=== PATIENT | male | born 1960 | race Two or more races ===

== ENCOUNTER 2024-09-24 12:30 | Inpatient (IN) | payer OTHER ==
[~2024-09-24] VITALS: Ht 182.9 cm; Wt 87.1 kg
[2024-09-24 14:44] LABS: BASOPHILS % (AUTO) 0.6 % (0.0-2.0); EOSINOPHILS # (AUTO) 0.1 K/uL (0.0-0.7); EOSINOPHILS % (AUTO) 1.6 % (0.0-7.0); HEMATOCRIT 41.8 % (36.7-47.1); HEMOGLOBIN 14.3 g/dL (12.5-16.3); LYMPHOCYTES # (AUTO) 1.8 K/uL (0.8-4.8); LYMPHOCYTES % (AUTO) 26.6 % (20.5-51.5); MEAN CORPUSCULAR HEMOGLOBIN 30.1 uug (23.8-33.4); MEAN CORPUSCULAR HGB CONC 34 g/dL (32.5-36.3); MEAN CORPUSCULAR VOLUME 88.1 fL (73.0-96.2); MONOCYTES # (AUTO) 0.8 K/uL (0.1-1.30); MONOCYTES % (AUTO) 11.9 % (0.0-11.0); NEUTROPHILS # (AUTO) 3.9 K/uL (1.8-8.9); NEUTROPHILS % (AUTO) 59.3 % (38.5-71.5); PLATELET COUNT (AUTO) 213 K/uL (152-348); RED BLOOD CELL COUNT(AUTO) 4.74 MIL/uL (4.06-5.63); RED CELL DISTRIBUTION WIDTH 14.7 % (12.1-16.2); WHITE BLOOD COUNT (AUTO) 6.6 K/uL (3.6-10.2)
[2024-09-24 15:20] LABS: DIFFERENTIAL COMMENT 1
[2024-09-24 15:26] LABS: CALCIUM 11.1 mg/dL (8.5-10.1); CREATININE 2.2 mg/dL (0.6-1.3); POTASSIUM 4.3 mmol/L (3.5-5.1)
[2024-09-24 15:30] LABS: *BILIRUBIN,URIN NEGATIVE (NEGATIVE); *BLOOD, URINE NEGATIVE (NEGATIVE); *CLARITY,URINE CLEAR (CLEAR); *COLOR,URINE YELLOW (YELLOW); *KETONES,URINE NEGATIVE (NEGATIVE); *PROTEIN,URINE NEGATIVE (NEGATIVE); *UROBILINOGEN,URINE 0.2 E.U./dl (NORMAL); LEUKOCYTE ESTERASE ,URINE 1+ (NEGATIVE); NITRITE, URINE NEGATIVE (NEGATIVE); PH,URINE 5.5 (5.0-8.0); UGLUCOSE NEGATIVE (NEGATIVE)
[2024-09-24] MEDS ORDERED: MAGNESIUM HYDROXIDE 30 ML LIQUID UDC ONE (15:56)
[2024-09-24] MEDS: MAGNESIUM HYDROXIDE 30 ML LIQUID UDC PO ONE (15:59)
[2024-09-24 16:06] LABS: BACTERIA,URINE FEW /HPF (NONE SEEN); RBC,URINE 0-3 /HPF (0-3)
[2024-09-24 16:07] LABS: SQUAMOUS EPITHELIAL CELL,UR FEW /HPF (NONE SEEN)
[2024-09-24 18:50] VITALS: BP 153/93; TEMP 98; O2SAT 96
[2024-09-24] MEDS ORDERED: METO25TA6 PO (18:52)
[2024-09-24] MEDS ORDERED: AMAN100T PO (18:52)
[2024-09-24] MEDS ORDERED: LEVE500T9 PO (18:52)
[2024-09-24] MEDS ORDERED: TAMS-3 PO (18:52)
[2024-09-24] MEDS ORDERED: PANT40TA49 PO (18:52)
[2024-09-24] MEDS ORDERED: DIVA-78 PO (18:52)
[2024-09-24] MEDS ORDERED: LEVO50TA8 PO (18:53)
[2024-09-24] MEDS ORDERED: OMEG100037 PO (18:54)
[2024-09-24] MEDS ORDERED: CHOL200010 PO (18:56)
[2024-09-24 20:00] VITALS: BP 131/86; TEMP 97.4; O2SAT 96
[2024-09-24] MEDS ORDERED: MAG HYDROX/AL HYDROX/SIMETH 30 ML LIQUID UDC PO PRN (20:00)
[2024-09-24] MEDS ORDERED: QUETIAPINE FUMARATE 25 MG TABLET PO PRN (20:00)
[2024-09-24] MEDS ORDERED: ZOLPIDEM 5 MG TABLET PO PRN (20:00)
[2024-09-24] MEDS ORDERED: LORAZEPAM 1 MG TABLET PO PRN (20:00)
[2024-09-24] MEDS ORDERED: ACETAMINOPHEN 325 MG TABLET PO PRN (20:00)
[2024-09-24] MEDS: BLOOD SUGAR DIAGNOSTIC 1 EACH STRIP VI ONE (20:47)
[2024-09-24] MEDS: levETIRAcetam 500 MG/5 ML LIQUID UDC NG SCH (21:53)
[2024-09-24] MEDS: ZOLPIDEM 5 MG TABLET PO PRN (22:22)
[2024-09-24] MEDS: METOPROLOL TARTRATE 25 MG TABLET PO SCH (23:30)
[2024-09-24] MEDS ORDERED: levETIRAcetam 500 MG TABLET PO SCH (23:30)
[2024-09-25 07:56] LABS: BASOPHILS # (AUTO) 0.1 K/UL (0.0-0.2); BASOPHILS % (AUTO) 0.8 % (0.0-2.0); EOSINOPHILS # (AUTO) 0.1 K/uL (0.0-0.7); EOSINOPHILS % (AUTO) 1.3 % (0.0-7.0); HEMATOCRIT 45.7 % (36.7-47.1); HEMOGLOBIN 15.5 g/dL (12.5-16.3); MEAN CORPUSCULAR HGB CONC 34 g/dL (32.5-36.3); MEAN CORPUSCULAR VOLUME 88.5 fL (73.0-96.2); MONOCYTES # (AUTO) 1.3 K/uL (0.1-1.30); MONOCYTES % (AUTO) 16.2 % (0.0-11.0); NEUTROPHILS # (AUTO) 4.4 K/uL (1.8-8.9); NEUTROPHILS % (AUTO) 56.7 % (38.5-71.5); PLATELET COUNT (AUTO) 234 K/uL (152-348); RED BLOOD CELL COUNT(AUTO) 5.16 MIL/uL (4.06-5.63); RED CELL DISTRIBUTION WIDTH 15.2 % (12.1-16.2); WHITE BLOOD COUNT (AUTO) 7.8 K/uL (3.6-10.2)
[2024-09-25] MEDS: levETIRAcetam 500 MG/5 ML LIQUID UDC PO SCH (08:09)
[2024-09-25] MEDS: LEVOTHYROXINE SODIUM 50 MCG TABLET PO SCH (08:10)
[2024-09-25] MEDS: CHOLECALCIFEROL 1,000 UNIT TABLET PO SCH (08:10)
[2024-09-25] MEDS: PANTOPRAZOLE SODIUM 40 MG TABLET.DR PO SCH (08:10)
[2024-09-25 08:18] VITALS: BP 138/86; TEMP 98; O2SAT 100
[2024-09-25 08:20] LABS: ALBUMIN 3.1 g/dL (3.4-5.0); BILIRUBIN,TOTAL 0.7 mg/dL (0.2-1.0); CALCIUM 10.9 mg/dL (8.5-10.1); CREATININE 2.1 mg/dL (0.6-1.3); MAGNESIUM 2.1 mg/dL (1.8-2.4); POTASSIUM 4.5 mmol/L (3.5-5.1); TOTAL PROTEIN, SERUM 7.2 g/dL (6.4-8.2)
[2024-09-25 08:23] LABS: DIFFERENTIAL COMMENT 1
[2024-09-25] MEDS ORDERED: DIVALPROEX 500 MG TABLET.DR PO SCH (09:00)
[2024-09-25] MEDS ORDERED: FISH OIL PO SCH (09:00)
[2024-09-25] MEDS ORDERED: EPA PO SCH (09:00)
[2024-09-25] MEDS ORDERED: OMEGA-3 FATTY ACIDS/FISH OIL CAPSULE PO SCH (09:00)
[2024-09-25] MEDS ORDERED: AMANTADINE HCL 100 MG CAPSULE PO SCH (09:00)
[2024-09-25] MEDS ORDERED: DHA PO SCH (09:00)
[2024-09-25] MEDS ORDERED: Medication Not On Formulary EA (Omega-3/Dha/Epa/Fish Oil (Fish Oil 1,000 mg Softgel) 1,0 PO SCH (09:00)
[2024-09-25] MEDS ORDERED: OMEGA PO SCH (09:00)
[2024-09-25] MEDS: OMEGA-3 FATTY ACIDS/FISH OIL CAPSULE PO SCH (09:19)
[2024-09-25 10:17] LABS: THYROID STIMULATING HORMONE 5.552 mIU/mL (0.358-3.740)
[2024-09-25 10:47] LABS: EOSINOPHILS % (MANUAL) 2 % (0-8); LYMPHOCYTES % (MANUAL) 25 % (20-40); MONOCYTES % (MANUAL) 16 % (2-10); NEUTROPHILS % (MANUAL) 57 % (42-75)
[2024-09-25 10:48] LABS: PLATELET ESTIMATE ADEQUATE
[2024-09-25] MEDS ORDERED: ZIPRASIDONE 20 MG CAPSULE PO SCH (15:15)
[2024-09-25 16:08] VITALS: BP 109/64; TEMP 98.1; O2SAT 100
[2024-09-25] MEDS: ZIPRASIDONE 20 MG CAPSULE PO SCH (17:04)
[2024-09-25] MEDS: VENLAFAXINE XR 37.5 MG CAP.SR.24H PO SCH (17:04)
[2024-09-25] MEDS: LITHIUM CARBONATE 150 MG CAPSULE PO SCH (17:04)
[2024-09-25] MEDS ORDERED: CEphaleXIN 500 MG CAPSULE PO SCH (18:30)
[2024-09-25] MEDS: CEphaleXIN 500 MG CAPSULE PO SCH (18:52)
[2024-09-25 20:00] VITALS: BP 135/89; TEMP 97.9; O2SAT 97
[2024-09-25] MEDS: AMANTADINE HCL 100 MG CAPSULE PO SCH (20:27)
[2024-09-25] MEDS: levETIRAcetam 500 MG TABLET PO SCH (20:27)
[2024-09-25] MEDS: TAMSULOSIN HCL 0.4 MG CAP.SR.24H PO SCH (20:28)
[2024-09-26] MEDS: MAGNESIUM HYDROXIDE 30 ML LIQUID UDC PO PRN (02:29)
[2024-09-26 08:14] VITALS: BP 133/78; TEMP 98.1; O2SAT 100
[2024-09-26 08:20] LABS: BASOPHILS % (AUTO) 0.6 % (0.0-2.0); DIFFERENTIAL COMMENT 1; EOSINOPHILS # (AUTO) 0.1 K/uL (0.0-0.7); EOSINOPHILS % (AUTO) 1.6 % (0.0-7.0); HEMATOCRIT 43.1 % (36.7-47.1); HEMOGLOBIN 14.6 g/dL (12.5-16.3); LYMPHOCYTES # (AUTO) 2.3 K/uL (0.8-4.8); LYMPHOCYTES % (AUTO) 30.7 % (20.5-51.5); MEAN CORPUSCULAR HEMOGLOBIN 29.9 uug (23.8-33.4); MEAN CORPUSCULAR HGB CONC 34 g/dL (32.5-36.3); MEAN CORPUSCULAR VOLUME 88.2 fL (73.0-96.2); MONOCYTES # (AUTO) 1.1 K/uL (0.1-1.30); MONOCYTES % (AUTO) 15.5 % (0.0-11.0); NEUTROPHILS # (AUTO) 3.8 K/uL (1.8-8.9); NEUTROPHILS % (AUTO) 51.6 % (38.5-71.5); PLATELET COUNT (AUTO) 211 K/uL (152-348); RED BLOOD CELL COUNT(AUTO) 4.88 MIL/uL (4.06-5.63); WHITE BLOOD COUNT (AUTO) 7.3 K/uL (3.6-10.2)
[2024-09-26 08:40] LABS: ALBUMIN 2.9 g/dL (3.4-5.0); BILIRUBIN,TOTAL 0.8 mg/dL (0.2-1.0); CALCIUM 11.3 mg/dL (8.5-10.1); CREATININE 2.2 mg/dL (0.6-1.3); MAGNESIUM 2.5 mg/dL (1.8-2.4); PHOSPHOROUS 4.3 mg/dL (2.5-4.9); POTASSIUM 4.2 mmol/L (3.5-5.1); TOTAL PROTEIN, SERUM 6.4 g/dL (6.4-8.2)
[2024-09-26 08:51] LABS: LYMPHOCYTES % (MANUAL) 0 % (20-40); NEUTROPHILS % (MANUAL) 0 % (42-75)
[2024-09-26 16:16] VITALS: BP 122/81; TEMP 98.3; O2SAT 100
[2024-09-26 20:00] VITALS: BP 125/80; TEMP 98.3; O2SAT 96
[2024-09-26] MEDS: MIRTAZAPINE 15 MG TABLET PO SCH (21:10)
[2024-09-27 10:17] VITALS: BP 130/94; TEMP 97.6; O2SAT 95
[2024-09-27 16:10] VITALS: BP 118/83; TEMP 97.5; O2SAT 96
[2024-09-27 19:51] VITALS: BP 125/70; TEMP 97.6; O2SAT 95
[2024-09-27] MEDS: ZIPRASIDONE 20 MG CAPSULE PO SCH (21:32)
[2024-09-27] MEDS: AMOXICILLIN-CLAVUL 875-125MG TABLET PO SCH (21:32)
[2024-09-28 08:12] VITALS: BP 133/84; TEMP 97.9; O2SAT 94
[2024-09-28] MEDS: VENLAFAXINE XR 75 MG TAB.ER.24H PO SCH (08:42)
[2024-09-28 16:14] VITALS: BP 137/90; TEMP 98.2; O2SAT 98
[2024-09-28 20:00] VITALS: BP 133/83; TEMP 98.2; O2SAT 97
[2024-09-29 01:06] LABS: PTH, INTACT 7 pg/mL (15-65)
[2024-09-29 05:06] LABS: A/G RATIO 1.1 (0.7-1.7); ALPHA-1-GLOBULIN 0.2 g/dL (0.0-0.4); ALPHA-2-GLOBULIN 0.5 g/dL (0.4-1.0); BETA GLOBULIN 0.7 g/dL (0.7-1.3); GAMMA GLOBULIN 1.4 g/dL (0.4-1.8); GLOBULIN, TOTAL 2.8 g/dL (2.2-3.9); M-SPIKE 0.4 g/dL (Not Observed); PROTEIN, TOTAL 5.8 g/dL (6.0-8.5)
[2024-09-29 07:58] VITALS: BP 120/75; TEMP 98.2; O2SAT 96
[2024-09-29 15:54] VITALS: BP 120/84; TEMP 98.6; O2SAT 100
[2024-09-29 20:00] VITALS: BP 94/69; TEMP 95.1; O2SAT 98
[2024-09-29 20:36] VITALS: BP 101/75
[2024-09-29] MEDS: MIRTAZAPINE 15 MG TABLET PO SCH (20:41)
[2024-09-30 07:59] VITALS: BP 115/82; TEMP 98.2; O2SAT 96
[2024-09-30 08:53] LABS: CREATININE 3.2 mg/dL (0.6-1.3); POTASSIUM 4.8 mmol/L (3.5-5.1)
[2024-09-30 09:38] LABS: CALCIUM 13.5 mg/dL (8.5-10.1)
[2024-09-30] MEDS: LAMOTRIGINE 25 MG TABLET PO SCH (12:51)
[2024-09-30] MEDS: IV NS 1000 ML 1,000 ML IV SCH (12:54)
[2024-09-30 15:56] VITALS: BP 133/85; TEMP 98.2; O2SAT 99
[2024-09-30 20:00] VITALS: BP 121/85; TEMP 97.8; O2SAT 98
[2024-09-30] MEDS: AMOXICILLIN-CLAVUL 500-125MG TABLET PO SCH (20:26)
[2024-10-01 08:00] VITALS: BP 135/93; TEMP 98; O2SAT 99
[2024-10-01 08:16] LABS: BASOPHILS % (AUTO) 0.5 % (0.0-2.0); EOSINOPHILS # (AUTO) 0.2 K/uL (0.0-0.7); EOSINOPHILS % (AUTO) 2.6 % (0.0-7.0); HEMATOCRIT 43.7 % (36.7-47.1); HEMOGLOBIN 14.6 g/dL (12.5-16.3); LYMPHOCYTES # (AUTO) 2.6 K/uL (0.8-4.8); LYMPHOCYTES % (AUTO) 29.4 % (20.5-51.5); MEAN CORPUSCULAR HEMOGLOBIN 29.8 uug (23.8-33.4); MEAN CORPUSCULAR HGB CONC 34 g/dL (32.5-36.3); MEAN CORPUSCULAR VOLUME 88.9 fL (73.0-96.2); MONOCYTES # (AUTO) 1.2 K/uL (0.1-1.30); MONOCYTES % (AUTO) 14.2 % (0.0-11.0); NEUTROPHILS # (AUTO) 4.6 K/uL (1.8-8.9); NEUTROPHILS % (AUTO) 53.3 % (38.5-71.5); PLATELET COUNT (AUTO) 176 K/uL (152-348); RED BLOOD CELL COUNT(AUTO) 4.92 MIL/uL (4.06-5.63); RED CELL DISTRIBUTION WIDTH 14.6 % (12.1-16.2); WHITE BLOOD COUNT (AUTO) 8.7 K/uL (3.6-10.2)
[2024-10-01 08:24] LABS: DIFFERENTIAL COMMENT 1
[2024-10-01 08:42] LABS: CREATININE 3.1 mg/dL (0.6-1.3); MAGNESIUM 2.4 mg/dL (1.8-2.4); PHOSPHOROUS 4.7 mg/dL (2.5-4.9); POTASSIUM 4.6 mmol/L (3.5-5.1)
[2024-10-01] MEDS: AMANTADINE HCL 100 MG CAPSULE PO SCH (08:43)
[2024-10-01 08:46] LABS: CALCIUM 13.2 mg/dL (8.5-10.1)
[2024-10-01 15:38] VITALS: BP 142/101; TEMP 98; O2SAT 98
[2024-10-01 20:00] VITALS: BP 187/118; TEMP 98; O2SAT 98
[2024-10-01 21:21] VITALS: BP 156/100
[2024-10-02 07:29] LABS: BASOPHILS # (AUTO) 0.1 K/UL (0.0-0.2); BASOPHILS % (AUTO) 0.7 % (0.0-2.0); EOSINOPHILS # (AUTO) 0.2 K/uL (0.0-0.7); EOSINOPHILS % (AUTO) 2.4 % (0.0-7.0); HEMATOCRIT 44.3 % (36.7-47.1); HEMOGLOBIN 14.9 g/dL (12.5-16.3); LYMPHOCYTES # (AUTO) 2.4 K/uL (0.8-4.8); LYMPHOCYTES % (AUTO) 30.6 % (20.5-51.5); MEAN CORPUSCULAR HEMOGLOBIN 29.7 uug (23.8-33.4); MEAN CORPUSCULAR HGB CONC 34 g/dL (32.5-36.3); MEAN CORPUSCULAR VOLUME 88.4 fL (73.0-96.2); MONOCYTES % (AUTO) 12.4 % (0.0-11.0); NEUTROPHILS # (AUTO) 4.2 K/uL (1.8-8.9); NEUTROPHILS % (AUTO) 53.9 % (38.5-71.5); PLATELET COUNT (AUTO) 178 K/uL (152-348); RED BLOOD CELL COUNT(AUTO) 5.01 MIL/uL (4.06-5.63); RED CELL DISTRIBUTION WIDTH 15.1 % (12.1-16.2); WHITE BLOOD COUNT (AUTO) 7.9 K/uL (3.6-10.2)
[2024-10-02 07:41] LABS: MAGNESIUM 2.1 mg/dL (1.8-2.4); PHOSPHOROUS 4.1 mg/dL (2.5-4.9); POTASSIUM 4.3 mmol/L (3.5-5.1)
[2024-10-02 07:44] LABS: DIFFERENTIAL COMMENT 1
[2024-10-02 08:16] VITALS: BP 150/82; TEMP 98.1; O2SAT 96
[2024-10-02] MEDS ORDERED: IV NORMAL SALINE 1000 ML BAG IV ONE ×2 (11:00→11:15)
[2024-10-02] MEDS: IV NS 1000 ML 1,000 ML IV ONE (12:30)
[2024-10-02 16:12] VITALS: BP 156/99; TEMP 98; O2SAT 100
[2024-10-02 20:00] VITALS: BP 156/101; TEMP 97.9; O2SAT 99
[2024-10-02] MEDS: ZIPRASIDONE 20 MG CAPSULE PO SCH (20:55)
[2024-10-02 21:03] VITALS: BP 152/96
[2024-10-03 08:16] VITALS: BP 110/87; TEMP 97.9; O2SAT 100
[2024-10-03 08:17] LABS: BASOPHILS # (AUTO) 0.1 K/UL (0.0-0.2); BASOPHILS % (AUTO) 0.5 % (0.0-2.0); EOSINOPHILS # (AUTO) 0.2 K/uL (0.0-0.7); EOSINOPHILS % (AUTO) 1.9 % (0.0-7.0); HEMATOCRIT 44.2 % (36.7-47.1); HEMOGLOBIN 14.8 g/dL (12.5-16.3); LYMPHOCYTES # (AUTO) 2.7 K/uL (0.8-4.8); LYMPHOCYTES % (AUTO) 28.7 % (20.5-51.5); MEAN CORPUSCULAR HEMOGLOBIN 30.1 uug (23.8-33.4); MEAN CORPUSCULAR HGB CONC 34 g/dL (32.5-36.3); MEAN CORPUSCULAR VOLUME 89.6 fL (73.0-96.2); MONOCYTES % (AUTO) 11.2 % (0.0-11.0); NEUTROPHILS # (AUTO) 5.4 K/uL (1.8-8.9); NEUTROPHILS % (AUTO) 57.7 % (38.5-71.5); PLATELET COUNT (AUTO) 187 K/uL (152-348); RED BLOOD CELL COUNT(AUTO) 4.93 MIL/uL (4.06-5.63); RED CELL DISTRIBUTION WIDTH 14.9 % (12.1-16.2); WHITE BLOOD COUNT (AUTO) 9.3 K/uL (3.6-10.2)
[2024-10-03 08:21] LABS: DIFFERENTIAL COMMENT 1
[2024-10-03 08:29] LABS: CALCIUM 12.9 mg/dL (8.5-10.1); CREATININE 2.8 mg/dL (0.6-1.3); MAGNESIUM 2.3 mg/dL (1.8-2.4); PHOSPHOROUS 3.8 mg/dL (2.5-4.9); POTASSIUM 5.2 mmol/L (3.5-5.1)
[2024-10-03] MEDS: LAMOTRIGINE 25 MG TABLET PO SCH (09:28)
[2024-10-03] MEDS: SODIUM ZIRCONIUM CYCLOSILICATE 10 GM POWD.PACK PO ONE (13:34)
[2024-10-03] MEDS: IV NS 1000 ML 1,000 ML IV SCH (14:59)
[2024-10-03 15:08] LABS: CALCIUM 12.8 mg/dL (8.5-10.1); CREATININE 2.6 mg/dL (0.6-1.3)
[2024-10-03 16:14] VITALS: BP 140/95; TEMP 97.4; O2SAT 100
[2024-10-03 20:08] VITALS: BP 158/98; TEMP 97.9; O2SAT 99
[2024-10-04 07:49] LABS: BASOPHILS # (AUTO) 0.1 K/UL (0.0-0.2); BASOPHILS % (AUTO) 0.7 % (0.0-2.0); EOSINOPHILS # (AUTO) 0.2 K/uL (0.0-0.7); EOSINOPHILS % (AUTO) 2.9 % (0.0-7.0); HEMATOCRIT 42.1 % (36.7-47.1); HEMOGLOBIN 14.2 g/dL (12.5-16.3); LYMPHOCYTES # (AUTO) 3.1 K/uL (0.8-4.8); MEAN CORPUSCULAR HEMOGLOBIN 30.1 uug (23.8-33.4); MEAN CORPUSCULAR HGB CONC 34 g/dL (32.5-36.3); MONOCYTES # (AUTO) 0.9 K/uL (0.1-1.30); MONOCYTES % (AUTO) 11.1 % (0.0-11.0); NEUTROPHILS # (AUTO) 3.9 K/uL (1.8-8.9); NEUTROPHILS % (AUTO) 47.3 % (38.5-71.5); PLATELET COUNT (AUTO) 171 K/uL (152-348); RED BLOOD CELL COUNT(AUTO) 4.73 MIL/uL (4.06-5.63); RED CELL DISTRIBUTION WIDTH 14.7 % (12.1-16.2); WHITE BLOOD COUNT (AUTO) 8.2 K/uL (3.6-10.2)
[2024-10-04 07:59] LABS: DIFFERENTIAL COMMENT 1
[2024-10-04 08:12] VITALS: BP 136/86; TEMP 98; O2SAT 99
[2024-10-04 08:35] LABS: ALBUMIN 2.8 g/dL (3.4-5.0); BILIRUBIN,TOTAL 0.5 mg/dL (0.2-1.0); CALCIUM 12.5 mg/dL (8.5-10.1); CREATININE 2.4 mg/dL (0.6-1.3); MAGNESIUM 2.1 mg/dL (1.8-2.4); PHOSPHOROUS 3.7 mg/dL (2.5-4.9); POTASSIUM 4.5 mmol/L (3.5-5.1); TOTAL PROTEIN, SERUM 6.3 g/dL (6.4-8.2)
[2024-10-04] MEDS ORDERED: IV NS 1000 ML 1,000 ML IV ONE (11:45)
[2024-10-04 15:47] VITALS: BP 160/96; TEMP 98; O2SAT 99
[2024-10-04 22:11] VITALS: BP 149/102; TEMP 97.8; O2SAT 100
[2024-10-05 08:18] VITALS: BP 129/84; TEMP 97.8; O2SAT 89
[2024-10-05] MEDS: LAMOTRIGINE 100 MG TABLET PO SCH (08:34)
[2024-10-05 08:54] LABS: BASOPHILS # (AUTO) 0.1 K/UL (0.0-0.2); BASOPHILS % (AUTO) 0.6 % (0.0-2.0); EOSINOPHILS # (AUTO) 0.2 K/uL (0.0-0.7); EOSINOPHILS % (AUTO) 2.3 % (0.0-7.0); HEMATOCRIT 41.5 % (36.7-47.1); HEMOGLOBIN 14.1 g/dL (12.5-16.3); LYMPHOCYTES # (AUTO) 2.9 K/uL (0.8-4.8); LYMPHOCYTES % (AUTO) 31.4 % (20.5-51.5); MEAN CORPUSCULAR HEMOGLOBIN 30.3 uug (23.8-33.4); MEAN CORPUSCULAR HGB CONC 34 g/dL (32.5-36.3); MEAN CORPUSCULAR VOLUME 89.3 fL (73.0-96.2); MONOCYTES % (AUTO) 11.1 % (0.0-11.0); NEUTROPHILS # (AUTO) 5.1 K/uL (1.8-8.9); NEUTROPHILS % (AUTO) 54.6 % (38.5-71.5); PLATELET COUNT (AUTO) 175 K/uL (152-348); RED BLOOD CELL COUNT(AUTO) 4.65 MIL/uL (4.06-5.63); RED CELL DISTRIBUTION WIDTH 14.7 % (12.1-16.2); WHITE BLOOD COUNT (AUTO) 9.3 K/uL (3.6-10.2)
[2024-10-05 09:00] LABS: DIFFERENTIAL COMMENT 1
[2024-10-05] MEDS ORDERED: LAMOTRIGINE 25 MG TABLET PO SCH (09:00)
[2024-10-05 09:13] LABS: ALBUMIN 2.8 g/dL (3.4-5.0); BILIRUBIN,TOTAL 0.5 mg/dL (0.2-1.0); CALCIUM 11.7 mg/dL (8.5-10.1); CREATININE 2.6 mg/dL (0.6-1.3); MAGNESIUM 2.3 mg/dL (1.8-2.4); PHOSPHOROUS 3.3 mg/dL (2.5-4.9); POTASSIUM 4.1 mmol/L (3.5-5.1); TOTAL PROTEIN, SERUM 6.4 g/dL (6.4-8.2)
[2024-10-05 16:18] VITALS: BP 132/80; TEMP 97.8; O2SAT 98
[2024-10-05 20:00] VITALS: BP 156/88; TEMP 97.9; O2SAT 99
[2024-10-06] MEDS: ZOLPIDEM 5 MG TABLET PO ONE (00:58)
[2024-10-06] MEDS ORDERED: ZOLPIDEM 5 MG TABLET PO PRN (05:30)
[2024-10-06 08:16] VITALS: BP 151/86; TEMP 97.8; O2SAT 96
[2024-10-06 08:21] LABS: BASOPHILS % (AUTO) 0.6 % (0.0-2.0); EOSINOPHILS # (AUTO) 0.2 K/uL (0.0-0.7); EOSINOPHILS % (AUTO) 3.4 % (0.0-7.0); HEMATOCRIT 41.1 % (36.7-47.1); HEMOGLOBIN 13.7 g/dL (12.5-16.3); LYMPHOCYTES % (AUTO) 40.6 % (20.5-51.5); MEAN CORPUSCULAR HEMOGLOBIN 29.6 uug (23.8-33.4); MEAN CORPUSCULAR HGB CONC 33 g/dL (32.5-36.3); MONOCYTES # (AUTO) 0.8 K/uL (0.1-1.30); MONOCYTES % (AUTO) 11.1 % (0.0-11.0); NEUTROPHILS # (AUTO) 3.3 K/uL (1.8-8.9); NEUTROPHILS % (AUTO) 44.3 % (38.5-71.5); PLATELET COUNT (AUTO) 159 K/uL (152-348); RED BLOOD CELL COUNT(AUTO) 4.62 MIL/uL (4.06-5.63); RED CELL DISTRIBUTION WIDTH 14.8 % (12.1-16.2); WHITE BLOOD COUNT (AUTO) 7.3 K/uL (3.6-10.2)
[2024-10-06 08:26] LABS: DIFFERENTIAL COMMENT 1
[2024-10-06 08:45] LABS: ALBUMIN 2.6 g/dL (3.4-5.0); BILIRUBIN,TOTAL 0.5 mg/dL (0.2-1.0); CALCIUM 10.8 mg/dL (8.5-10.1); CREATININE 2.3 mg/dL (0.6-1.3); PHOSPHOROUS 3.1 mg/dL (2.5-4.9); POTASSIUM 4.2 mmol/L (3.5-5.1)
[2024-10-06] MEDS ORDERED: IV NS 1000 ML 1,000 ML IV SCH (13:00)
[2024-10-06] MEDS: IV 1/2NS 1000 ML 1,000 ML IV SCH (13:22)
[2024-10-06 16:18] VITALS: BP 177/89; TEMP 98; O2SAT 100
[2024-10-06 20:00] VITALS: BP 146/81; TEMP 98.1; O2SAT 96
[2024-10-06 22:15] VITALS: BP 138/76
[2024-10-07 08:41] VITALS: BP 150/93; TEMP 98.2; O2SAT 98
[2024-10-07] MEDS ORDERED: VENLAFAXINE XR 75 MG TAB.ER.24H PO SCH (09:00)
[2024-10-07] MEDS: VENLAFAXINE XR 37.5 MG CAP.SR.24H PO SCH (09:00)
[2024-10-07 12:40] LABS: BASOPHILS # (AUTO) 0.1 K/UL (0.0-0.2); BASOPHILS % (AUTO) 0.8 % (0.0-2.0); EOSINOPHILS # (AUTO) 0.2 K/uL (0.0-0.7); EOSINOPHILS % (AUTO) 2.5 % (0.0-7.0); HEMATOCRIT 41.7 % (36.7-47.1); LYMPHOCYTES # (AUTO) 2.3 K/uL (0.8-4.8); LYMPHOCYTES % (AUTO) 32.6 % (20.5-51.5); MEAN CORPUSCULAR HEMOGLOBIN 30.2 uug (23.8-33.4); MEAN CORPUSCULAR HGB CONC 34 g/dL (32.5-36.3); MEAN CORPUSCULAR VOLUME 89.7 fL (73.0-96.2); MONOCYTES # (AUTO) 0.6 K/uL (0.1-1.30); MONOCYTES % (AUTO) 8.7 % (0.0-11.0); NEUTROPHILS # (AUTO) 3.8 K/uL (1.8-8.9); NEUTROPHILS % (AUTO) 55.4 % (38.5-71.5); PLATELET COUNT (AUTO) 174 K/uL (152-348); RED BLOOD CELL COUNT(AUTO) 4.65 MIL/uL (4.06-5.63); RED CELL DISTRIBUTION WIDTH 14.6 % (12.1-16.2); WHITE BLOOD COUNT (AUTO) 6.9 K/uL (3.6-10.2)
[2024-10-07 12:41] LABS: DIFFERENTIAL COMMENT 1
[2024-10-07 12:58] LABS: ALBUMIN 2.9 g/dL (3.4-5.0); BILIRUBIN,TOTAL 0.5 mg/dL (0.2-1.0); CREATININE 2.3 mg/dL (0.6-1.3); PHOSPHOROUS 3.8 mg/dL (2.5-4.9); POTASSIUM 4.3 mmol/L (3.5-5.1); TOTAL PROTEIN, SERUM 6.5 g/dL (6.4-8.2)
[2024-10-07 13:09] LABS: *VITAMIN D 25-OH VIT D 47 ng/mL (.); *VITAMIN D 25-OH, D2 <1.0 ng/mL (.); *VITAMIN D 25-OH, D3 47 ng/mL (.)
[2024-10-07 16:05] VITALS: BP 148/95; TEMP 98; O2SAT 99
[2024-10-07] MEDS ORDERED: MAGN400O6 PO (20:07)
[2024-10-07] MEDS ORDERED: LEVE500T9 PO (20:07)
[2024-10-07] MEDS ORDERED: ACET-3117 PO (20:07)
[2024-10-07] MEDS ORDERED: VENL150C58 PO (20:07)
[2024-10-07] MEDS ORDERED: [UNRECOGNIZED DRUG - CODE] (20:07)
[2024-10-07] MEDS ORDERED: ZIPR80CA2 PO (20:07)
[2024-10-07] MEDS ORDERED: LAMO150T6 PO (20:07)
[2024-10-07] MEDS ORDERED: MIRT-73 PO (20:07)
[2024-10-07] MEDS ORDERED: MAG-79 PO (20:07)
[2024-10-07] MEDS ORDERED: ZOLP5TAB2 PO (20:07)
[2024-10-07] MEDS ORDERED: ZIPRASIDONE 20 MG CAPSULE PO SCH ×2 (21:00)
[2024-10-07] MEDS ORDERED: ZIPRASIDONE 80 MG CAPSULE PO SCH ×2 (21:00)
[2024-10-08] MEDS ORDERED: VENLAFAXINE XR 150 MG CAP.SR.24H PO SCH (09:00)
[2024-10-08] MEDS ORDERED: LAMOTRIGINE 100 MG TABLET PO SCH (09:00)
[2024-10-08] MEDS ORDERED: MIRT-93 PO (10:50)
[2024-10-08] MEDS ORDERED: MIRT-73 PO (10:50)
[2024-10-08] MEDS ORDERED: ACET325T53 PO (10:50)
== END 2024-10-07 18:15 | disposition short-term general hospital (02) | DRG 885 ==
LOC: ER 12:30 → GPS 18:11
PROVIDERS: ADMIT Psychiatry & Neurology Psychiatry; ATTEND Nurse Practitioner Acute Care
DX: F39 Unspecified mood [affective] disorder (principal); N18.9 Chronic kidney disease, unspecified; N17.0 Acute kidney failure with tubular necrosis; G93.41 Metabolic encephalopathy; R45.851 Suicidal ideations; N39.0 Urinary tract infection, site not specified; E44.1 Mild protein-calorie malnutrition; E87.0 Hyperosmolality and hypernatremia; F31.9 Bipolar disorder, unspecified; F25.9 Schizoaffective disorder, unspecified; B96.89 Other specified bacterial agents as the cause of diseases classified elsewhere; G40.909 Epilepsy, unspecified, not intractable, without status epilepticus; R32 Unspecified urinary incontinence; N40.1 Benign prostatic hyperplasia with lower urinary tract symptoms; Z79.899 Other long term (current) drug therapy; Z87.891 Personal history of nicotine dependence; Z91.410 Personal history of adult physical and sexual abuse; Z68.26 Body mass index [BMI] 26.0-26.9, adult; Z91.51 Personal history of suicidal behavior; E03.9 Hypothyroidism, unspecified; E83.52 Hypercalcemia; Z79.890 Hormone replacement therapy; M89.8X9 Other specified disorders of bone, unspecified site; I12.9 Hypertensive chronic kidney disease with stage 1 through stage 4 chronic kidney disease, or unspecified chronic kidney disease; K56.41 Fecal impaction; E87.5 Hyperkalemia; E88.09 Other disorders of plasma-protein metabolism, not elsewhere classified; E86.0 Dehydration
CPT/HCPCS: 36415; 70030-TC; 74018; 76770; 80164; 83735; 83970; 84100; 84155; 84165; 84443; 85025; J7040

== ENCOUNTER 2024-10-07 18:55 | Inpatient (IN) | payer MEDICARE, OTHER ==
[~2024-10-07] VITALS: Ht 182.9 cm; Wt 87.1 kg
[~2024-10-07 18:55] MED LIST: AMAN100T PO; CHOL200010 PO; LEVE500T9 PO; LEVO50TA8 PO; METO25TA6 PO; OMEG100037 PO; PANT40TA49 PO; TAMS-3 PO
[2024-10-07 19:30] VITALS: BP 129/87; TEMP 98.2
[2024-10-07] MEDS ORDERED: LAMO150T6 PO (20:07)
[2024-10-07] MEDS ORDERED: MAG-79 PO (20:07)
[2024-10-07] MEDS ORDERED: MIRT-73 PO (20:07)
[2024-10-07] MEDS ORDERED: ACET-3117 PO (20:07)
[2024-10-07] MEDS ORDERED: ZIPR80CA2 PO (20:07)
[2024-10-07] MEDS ORDERED: LEVE500T9 PO (20:07)
[2024-10-07] MEDS ORDERED: VENL150C58 PO (20:07)
[2024-10-07] MEDS ORDERED: [UNRECOGNIZED DRUG - CODE] (20:07)
[2024-10-07] MEDS ORDERED: ZOLP5TAB2 PO (20:07)
[2024-10-07] MEDS ORDERED: MAGN400O6 PO (20:07)
[2024-10-07] MEDS ORDERED: ONDANSETRON 4 MG/2 ML VIAL IV PRN (20:30)
[2024-10-07] MEDS: IV 1/2NS 1000 ML 1,000 ML IV PRN (21:00)
[2024-10-07] MEDS: DOCUSATE SODIUM 250 MG CAPSULE PO SCH (22:20)
[2024-10-07] MEDS: ACETAMINOPHEN 325 MG TABLET PO PRN (23:09)
[2024-10-08 00:03] VITALS: BP 145/95; TEMP 98.7; O2SAT 97
[2024-10-08 04:45] VITALS: BP 157/93; TEMP 98.7; O2SAT 99
[2024-10-08] MEDS: hydrALAZINE HCL 25 MG TABLET PO PRN (04:49)
[2024-10-08 05:54] VITALS: BP 147/97
[2024-10-08] MEDS: PANTOPRAZOLE SODIUM 40 MG TABLET.DR PO SCH (06:34)
[2024-10-08 06:51] LABS: BASOPHILS # (AUTO) 0.1 K/UL (0.0-0.2); BASOPHILS % (AUTO) 0.6 % (0.0-2.0); EOSINOPHILS # (AUTO) 0.2 K/uL (0.0-0.7); EOSINOPHILS % (AUTO) 2.3 % (0.0-7.0); HEMATOCRIT 40.9 % (36.7-47.1); HEMOGLOBIN 13.6 g/dL (12.5-16.3); LYMPHOCYTES # (AUTO) 2.8 K/uL (0.8-4.8); MEAN CORPUSCULAR HEMOGLOBIN 29.7 uug (23.8-33.4); MEAN CORPUSCULAR HGB CONC 33 g/dL (32.5-36.3); MEAN CORPUSCULAR VOLUME 89.1 fL (73.0-96.2); MONOCYTES # (AUTO) 0.7 K/uL (0.1-1.30); MONOCYTES % (AUTO) 8.2 % (0.0-11.0); NEUTROPHILS # (AUTO) 4.7 K/uL (1.8-8.9); NEUTROPHILS % (AUTO) 55.9 % (38.5-71.5); PLATELET COUNT (AUTO) 149 K/uL (152-348); RED BLOOD CELL COUNT(AUTO) 4.59 MIL/uL (4.06-5.63); RED CELL DISTRIBUTION WIDTH 14.6 % (12.1-16.2); WHITE BLOOD COUNT (AUTO) 8.3 K/uL (3.6-10.2)
[2024-10-08 07:09] LABS: DIFFERENTIAL COMMENT 1
[2024-10-08 07:15] LABS: ALBUMIN 2.7 g/dL (3.4-5.0); BILIRUBIN,TOTAL 0.4 mg/dL (0.2-1.0); CALCIUM 10.5 mg/dL (8.5-10.1); CREATININE 2.3 mg/dL (0.6-1.3); MAGNESIUM 1.9 mg/dL (1.8-2.4); PHOSPHOROUS 3.4 mg/dL (2.5-4.9); POTASSIUM 4.1 mmol/L (3.5-5.1); TOTAL PROTEIN, SERUM 6.4 g/dL (6.4-8.2)
[2024-10-08 08:50] VITALS: BP 158/95; TEMP 98.3; O2SAT 97
[2024-10-08] MEDS ORDERED: VENLAFAXINE XR 37.5 MG CAP.SR.24H PO SCH (10:15)
[2024-10-08] MEDS ORDERED: MIRT-73 PO (10:50)
[2024-10-08] MEDS ORDERED: MIRT-93 PO (10:50)
[2024-10-08] MEDS ORDERED: ACET325T53 PO (10:50)
[2024-10-08] MEDS: LAMOTRIGINE 100 MG TABLET PO SCH (10:57)
[2024-10-08] MEDS: VENLAFAXINE XR 150 MG CAP.SR.24H PO SCH (10:58)
[2024-10-08] MEDS: ZIPRASIDONE 20 MG CAPSULE PO SCH (11:00)
[2024-10-08] MEDS ORDERED: ZIPRASIDONE 80 MG CAPSULE PO SCH (11:30)
[2024-10-08 15:54] VITALS: BP 137/91; TEMP 97.9; O2SAT 98
[2024-10-08 19:28] VITALS: BP 138/99; TEMP 98.4; O2SAT 97
[2024-10-08] MEDS: DOCUSATE SODIUM 100 MG CAPSULE PO SCH (20:14)
[2024-10-08] MEDS: MIRTAZAPINE 15 MG TABLET PO SCH (20:14)
[2024-10-08] MEDS: TEMAZEPAM 15 MG CAPSULE PO PRN (20:14)
[2024-10-09 04:35] VITALS: BP 153/109; TEMP 98; O2SAT 97
[2024-10-09 06:39] VITALS: BP 130/97
[2024-10-09 07:02] LABS: BASOPHILS % (AUTO) 0.6 % (0.0-2.0); EOSINOPHILS # (AUTO) 0.3 K/uL (0.0-0.7); EOSINOPHILS % (AUTO) 3.9 % (0.0-7.0); HEMATOCRIT 45.8 % (36.7-47.1); HEMOGLOBIN 15.5 g/dL (12.5-16.3); LYMPHOCYTES % (AUTO) 41.3 % (20.5-51.5); MEAN CORPUSCULAR HEMOGLOBIN 30.3 uug (23.8-33.4); MEAN CORPUSCULAR HGB CONC 34 g/dL (32.5-36.3); MEAN CORPUSCULAR VOLUME 89.8 fL (73.0-96.2); MONOCYTES # (AUTO) 0.7 K/uL (0.1-1.30); MONOCYTES % (AUTO) 9.1 % (0.0-11.0); NEUTROPHILS # (AUTO) 3.3 K/uL (1.8-8.9); NEUTROPHILS % (AUTO) 45.1 % (38.5-71.5); PLATELET COUNT (AUTO) 190 K/uL (152-348); RED CELL DISTRIBUTION WIDTH 15.1 % (12.1-16.2); WHITE BLOOD COUNT (AUTO) 7.3 K/uL (3.6-10.2)
[2024-10-09 07:16] LABS: CALCIUM 10.8 mg/dL (8.5-10.1); CREATININE 2.6 mg/dL (0.6-1.3); DIFFERENTIAL COMMENT 1; MAGNESIUM 1.9 mg/dL (1.8-2.4); PHOSPHOROUS 3.6 mg/dL (2.5-4.9); POTASSIUM 4.6 mmol/L (3.5-5.1)
[2024-10-09 07:30] VITALS: BP 153/98; TEMP 98; O2SAT 99
[2024-10-09 08:52] LABS: ALBUMIN 3.2 g/dL (3.4-5.0); BILIRUBIN,TOTAL 0.5 mg/dL (0.2-1.0); CALCIUM 11.3 mg/dL (8.5-10.1); CREATININE 2.6 mg/dL (0.6-1.3); POTASSIUM 4.7 mmol/L (3.5-5.1)
[2024-10-09] MEDS: MEROPENEM 500 MG in IV NORMAL SALINE 50 ML IV SCH (12:12)
[2024-10-09 17:38] VITALS: BP 150/109; TEMP 98.2; O2SAT 99
[2024-10-09 19:46] VITALS: BP 156/113; TEMP 98.2; O2SAT 99
[2024-10-10 08:00] VITALS: BP 93/53; TEMP 98.4; O2SAT 98
[2024-10-10 10:21] LABS: BASOPHILS % (AUTO) 0.4 % (0.0-2.0); EOSINOPHILS # (AUTO) 0.1 K/uL (0.0-0.7); EOSINOPHILS % (AUTO) 2.2 % (0.0-7.0); HEMATOCRIT 42.5 % (36.7-47.1); HEMOGLOBIN 14.7 g/dL (12.5-16.3); LYMPHOCYTES # (AUTO) 2.3 K/uL (0.8-4.8); LYMPHOCYTES % (AUTO) 34.7 % (20.5-51.5); MEAN CORPUSCULAR HEMOGLOBIN 30.6 uug (23.8-33.4); MEAN CORPUSCULAR HGB CONC 35 g/dL (32.5-36.3); MEAN CORPUSCULAR VOLUME 88.4 fL (73.0-96.2); MONOCYTES # (AUTO) 0.5 K/uL (0.1-1.30); MONOCYTES % (AUTO) 7.3 % (0.0-11.0); NEUTROPHILS # (AUTO) 3.6 K/uL (1.8-8.9); NEUTROPHILS % (AUTO) 55.4 % (38.5-71.5); PLATELET COUNT (AUTO) 183 K/uL (152-348); RED CELL DISTRIBUTION WIDTH 14.6 % (12.1-16.2); WHITE BLOOD COUNT (AUTO) 6.5 K/uL (3.6-10.2)
[2024-10-10 10:37] LABS: DIFFERENTIAL COMMENT 1
[2024-10-10 10:45] LABS: ALBUMIN 3.1 g/dL (3.4-5.0); BILIRUBIN,TOTAL 0.5 mg/dL (0.2-1.0); CALCIUM 10.3 mg/dL (8.5-10.1); CREATININE 2.4 mg/dL (0.6-1.3); MAGNESIUM 1.8 mg/dL (1.8-2.4); TOTAL PROTEIN, SERUM 6.8 g/dL (6.4-8.2)
[2024-10-10 12:00] VITALS: BP 168/116; TEMP 97.9; O2SAT 98
[2024-10-10] MEDS ORDERED: MAGNESIUM HYDROXIDE 30 ML LIQUID UDC PO PRN (13:30)
[2024-10-10] MEDS ORDERED: ACETAMINOPHEN 325 MG TABLET PO PRN (13:30)
[2024-10-10] MEDS: METOPROLOL TARTRATE 25 MG TABLET PO SCH (14:19)
[2024-10-10] MEDS: levETIRAcetam 500 MG TABLET PO SCH (14:19)
[2024-10-10] MEDS ORDERED: TEMAZEPAM 15 MG CAPSULE PO PRN (15:30)
[2024-10-10 16:13] VITALS: BP 156/107; TEMP 98; O2SAT 98
[2024-10-10] MEDS ORDERED: TEMAZEPAM 7.5 MG CAPSULE PO PRN (16:15)
[2024-10-10] MEDS ORDERED: MIRTAZAPINE 15 MG TABLET PO SCH (21:00)
[2024-10-10] MEDS ORDERED: ZIPRASIDONE 80 MG CAPSULE PO SCH (21:00)
[2024-10-10] MEDS: TAMSULOSIN HCL 0.4 MG CAP.SR.24H PO SCH (21:24)
[2024-10-11 04:26] VITALS: BP 138/86; TEMP 98.4; O2SAT 99
[2024-10-11] MEDS: LEVOTHYROXINE SODIUM 50 MCG TABLET PO SCH (06:25)
[2024-10-11] MEDS ORDERED: PANTOPRAZOLE SODIUM 40 MG TABLET.DR PO SCH (07:00)
[2024-10-11] MEDS ORDERED: LEVOTHYROXINE SODIUM 50 MCG TABLET PO SCH (07:00)
[2024-10-11 07:09] LABS: BASOPHILS % (AUTO) 0.5 % (0.0-2.0); EOSINOPHILS # (AUTO) 0.3 K/uL (0.0-0.7); HEMATOCRIT 42.6 % (36.7-47.1); HEMOGLOBIN 14.4 g/dL (12.5-16.3); LYMPHOCYTES % (AUTO) 39.5 % (20.5-51.5); MEAN CORPUSCULAR HEMOGLOBIN 30.1 uug (23.8-33.4); MEAN CORPUSCULAR HGB CONC 34 g/dL (32.5-36.3); MEAN CORPUSCULAR VOLUME 89.4 fL (73.0-96.2); MONOCYTES # (AUTO) 0.8 K/uL (0.1-1.30); MONOCYTES % (AUTO) 10.2 % (0.0-11.0); NEUTROPHILS # (AUTO) 3.4 K/uL (1.8-8.9); NEUTROPHILS % (AUTO) 45.8 % (38.5-71.5); PLATELET COUNT (AUTO) 193 K/uL (152-348); RED BLOOD CELL COUNT(AUTO) 4.77 MIL/uL (4.06-5.63); RED CELL DISTRIBUTION WIDTH 14.8 % (12.1-16.2); WHITE BLOOD COUNT (AUTO) 7.5 K/uL (3.6-10.2)
[2024-10-11 07:25] LABS: DIFFERENTIAL COMMENT 1
[2024-10-11 07:31] LABS: ALBUMIN 2.7 g/dL (3.4-5.0); BILIRUBIN,TOTAL 0.6 mg/dL (0.2-1.0); CALCIUM 10.1 mg/dL (8.5-10.1); CREATININE 2.4 mg/dL (0.6-1.3); MAGNESIUM 1.9 mg/dL (1.8-2.4); PHOSPHOROUS 3.5 mg/dL (2.5-4.9); POTASSIUM 4.4 mmol/L (3.5-5.1); TOTAL PROTEIN, SERUM 6.2 g/dL (6.4-8.2)
[2024-10-11 08:10] VITALS: BP 124/89; TEMP 98.2; O2SAT 98
[2024-10-11] MEDS: CHOLECALCIFEROL 1,000 UNIT TABLET PO SCH (08:36)
[2024-10-11] MEDS: AMANTADINE HCL 100 MG CAPSULE PO SCH (08:36)
[2024-10-11] MEDS ORDERED: VENLAFAXINE XR 150 MG CAP.SR.24H PO SCH (09:00)
[2024-10-11 12:07] VITALS: BP 124/71; TEMP 97; O2SAT 97
[2024-10-11 16:27] VITALS: BP 134/92; TEMP 98.1; O2SAT 97
[2024-10-11] MEDS ORDERED: TAMS-3 PO (19:13)
[2024-10-11] MEDS ORDERED: DOCU-141 PO (19:13)
[2024-10-11 19:38] VITALS: BP 134/79; TEMP 98.2; O2SAT 98
[2024-10-12 05:05] VITALS: BP 148/74; TEMP 97.8; O2SAT 97
[2024-10-12 08:00] VITALS: BP 150/82; TEMP 97.6
[2024-10-12 08:35] VITALS: BP 148/74
== END 2024-10-12 20:42 | DRG 682 ==
LOC: TELE3 18:55 → MEDSURG3 10-08 10:27
PROVIDERS: ADMIT Internal Medicine; ATTEND Internal Medicine
DX: N17.0 Acute kidney failure with tubular necrosis (principal); G93.41 Metabolic encephalopathy; F31.30 Bipolar disorder, current episode depressed, mild or moderate severity, unspecified; N39.0 Urinary tract infection, site not specified; R45.851 Suicidal ideations; G40.909 Epilepsy, unspecified, not intractable, without status epilepticus; K56.41 Fecal impaction; E83.52 Hypercalcemia; E88.09 Other disorders of plasma-protein metabolism, not elsewhere classified; E66.9 Obesity, unspecified; Z68.26 Body mass index [BMI] 26.0-26.9, adult; N40.0 Benign prostatic hyperplasia without lower urinary tract symptoms; E03.9 Hypothyroidism, unspecified; Z79.890 Hormone replacement therapy; F10.11 Alcohol abuse, in remission; Z87.891 Personal history of nicotine dependence; Z62.810 Personal history of physical and sexual abuse in childhood; F19.11 Other psychoactive substance abuse, in remission; F25.9 Schizoaffective disorder, unspecified; F39 Unspecified mood [affective] disorder; I12.9 Hypertensive chronic kidney disease with stage 1 through stage 4 chronic kidney disease, or unspecified chronic kidney disease; N18.9 Chronic kidney disease, unspecified
CPT/HCPCS: 36415; 71045; 83735; 84100; 85025; 93005; A4663; G0378; J2185